=== PATIENT | male | born 1990 | race African-American/Black ===

== ENCOUNTER → 2023-12-06 | Outpatient (CLI) | payer OTHER ==
[~2023-12-06] MED LIST: Iohexol 300 - 10 ML VIAL ONE; Lidocaine PF 2% (20 MG/ML) 2 ML VIAL ONE
== END ==
LOC: MHCPAIN 13:01
DX: M54.16 Radiculopathy, lumbar region (principal)
CPT/HCPCS: J1100; Q9967

== ENCOUNTER → 2023-12-19 | Outpatient (CLI) | payer OTHER | LOC: MHCPAIN 09:10 | DX: M51.26 Other intervertebral disc displacement, lumbar region (principal); M47.817 Spondylosis without myelopathy or radiculopathy, lumbosacral region | CPT/HCPCS: G0463 ==

== ENCOUNTER → 2024-01-17 | Outpatient (CLI) | payer OTHER | LOC: MHCPAIN 08:00 | DX: M54.16 Radiculopathy, lumbar region (principal) | CPT/HCPCS: J1010; Q9967 ==

== ENCOUNTER → 2024-02-15 | Outpatient (CLI) | payer OTHER | LOC: MHCPAIN 09:50 | DX: M51.27 Other intervertebral disc displacement, lumbosacral region (principal); M51.26 Other intervertebral disc displacement, lumbar region | CPT/HCPCS: G0463 ==

== ENCOUNTER → 2024-03-19 | Outpatient (CLI) | payer OTHER | LOC: MHCPAIN 12:57 | DX: M47.26 Other spondylosis with radiculopathy, lumbar region (principal); M54.50 Low back pain, unspecified; G89.29 Other chronic pain; M51.17 Intervertebral disc disorders with radiculopathy, lumbosacral region; R01.1 Cardiac murmur, unspecified | CPT/HCPCS: G0463 ==